=== PATIENT | male | born 1985 | race Hispanic/Latino ===

== ENCOUNTER → 2016-04-13 | Day surgery (SDC) | payer OTHER ==
[~2016-04-13] VITALS: Ht 182.9 cm; Wt 97.5 kg
[~2016-04-13] MED LIST: EPINEPHrine 1MG/ML INJ 30ML MD-VIAL As Ordered ONE; EPINEPHrine 1MG/ML INJ 30ML MD-VIAL XX ONE; GLYCOPYRROLATE INJ 0.2 MG/ML 2 ML VIAL As Ordered ONE; LIDOCAINE 2% INJ 100 MG/5 ML SDV (FOR ANES.) As Ordered ONE; LIDOCAINE W/EPINEPHRINE 1% 20ML VIAL As Ordered ONE; LIDOCAINE W/EPINEPHRINE 1% 20ML VIAL XX ONE; LR 1,000 ML IV SCH; MEPERIDINE INJ 25 MG/ML VIAL (J2175) IV PRN; METHYLENE BLUE 1% 10 ML VIAL (Q9968) As Ordered ONE; METOCLOPRAMIDE INJ 10MG/2ML VIAL (J2765) IV PRN; MIDAZOLAM INJ 2 MG/2 ML VIAL (J2250) As Ordered ONE; NEOSTIGMINE 1MG/ML 5 ML SYRINGE (J2710) As Ordered ONE; ONDANSETRON 4MG/2ML VIAL (J2405) As Ordered ONE; ONDANSETRON 4MG/2ML VIAL (J2405) IV PRN; PERCOCET 5MG/325MG TAB PO PRN; PROPOFOL 200 MG/20 ML VIAL As Ordered ONE; ROCURONIUM BROMIDE 50 MG/5 ML VIAL As Ordered ONE; SODIUM CHLORIDE 0.9% NASAL GEL 15MG (AYR) As Ordered ONE; dexameTHASONE 4 MG/ML 1ML VIAL (J1100) As Ordered ONE; dexameTHASONE 4 MG/ML 1ML VIAL (J1100) IV ONE; fentaNYL 100 MCG/2 ML INJECTION (J3010) IV PRN; fentaNYL 250 MCG/5 ML INJECTION (J3010) As Ordered ONE
[2016-04-13 12:40] VITALS: BP 163/97
== END | disposition home or self-care (01) ==
LOC: M SDC 08:44
PROVIDERS: ATTEND Otolaryngology
DX: J34.2 Deviated nasal septum (principal)
CPT/HCPCS: 30520; 88300; J1100; J2250; J2405; J2710; J3010; Q9968